=== PATIENT | male | born 1970 | race African-American/Black ===

== ENCOUNTER 2017-04-02 10:37 | Emergency (ER) | payer SELFPAY ==
[~2017-04-02] VITALS: Ht 172.7 cm; Wt 63.6 kg
[2017-04-02] MEDS ORDERED: BACITRACIN 0.9 GM PACKET OINTMENT TP ONE (11:15)
[2017-04-02] MEDS ORDERED: POVIDONE-IODINE 10% 15 ML SOLUTION UD TP ONE (11:15)
[2017-04-02] MEDS ORDERED: LIDOCAINE HCL/PF 1% 2 ML VIAL IM ONE (11:15)
[2017-04-02] MEDS ORDERED: CefTRIAXone SODIUM 1 GM/VIAL IM ONE (11:15)
[2017-04-02 12:32] VITALS: BP 121/84
== END 2017-04-02 12:33 | disposition home or self-care (01) ==
LOC: EMS 10:39
DX: L02.01 Cutaneous abscess of face (principal); L03.211 Cellulitis of face; L08.9 Local infection of the skin and subcutaneous tissue, unspecified; F17.210 Nicotine dependence, cigarettes, uncomplicated; F15.90 Other stimulant use, unspecified, uncomplicated
CPT/HCPCS: 96372; 99283; J0696; J3490

== ENCOUNTER 2019-10-07 15:31 | Emergency (ER) | payer MEDICAID ==
[~2019-10-07] VITALS: Ht 172.7 cm; Wt 63.6 kg
[2019-10-07] MEDS ORDERED: HALO5TAB2 PO (15:43)
[2019-10-07] MEDS ORDERED: DIPH50 PO (15:43)
[2019-10-07 15:44] VITALS: BP 126/83
[2019-10-07] MEDS ORDERED: NAPROXEN 250 MG TABLET PO ONE (16:30)
== END 2019-10-07 16:32 | disposition home or self-care (01) ==
LOC: EMS 15:32
DX: S31.119D Laceration without foreign body of abdominal wall, unspecified quadrant without penetration into peritoneal cavity, subsequent encounter (principal); R03.0 Elevated blood-pressure reading, without diagnosis of hypertension; F15.90 Other stimulant use, unspecified, uncomplicated; F17.210 Nicotine dependence, cigarettes, uncomplicated; Z48.02 Encounter for removal of sutures; X58.XXXD Exposure to other specified factors, subsequent encounter

== ENCOUNTER 2020-09-01 00:54 | Emergency (ER) | payer MEDICAID ==
[~2020-09-01] VITALS: Ht 165.1 cm; Wt 50.0 kg
[~2020-09-01 00:54] MED LIST: DIPH50 PO; HALO5TAB2 PO
[2020-09-01] MEDS ORDERED: LORazepam 2 MG/ML VIAL IVP ONE (01:15)
[2020-09-01] MEDS ORDERED: DiphenhydrAMINE HCL 50 MG/ML VIAL IVP ONE (01:15)
[2020-09-01] MEDS ORDERED: HALOPERIDOL LACTATE 5 MG/ML VIAL ONE (01:28)
[2020-09-01] MEDS ORDERED: DiphenhydrAMINE HCL 50 MG/ML VIAL IM ONE (01:30)
[2020-09-01] MEDS ORDERED: HALOPERIDOL LACTATE 5 MG/ML VIAL IM ONE (01:30)
[2020-09-01] MEDS ORDERED: LORazepam 2 MG/ML VIAL IM ONE (01:30)
[2020-09-01 06:50] LABS: BASOPHILS % (AUTO) 0.2 % (0.0-2.0); EOSINOPHILS % (AUTO) 0 % (1.0-6.0); HEMATOCRIT 38.8 % (41-53); HEMOGLOBIN 12.7 g/dL (13.5-17.5); LYMPHOCYTES # (AUTO) 0.5 K/uL (1.0-4.8); LYMPHOCYTES % (AUTO) 4.2 % (22.0-44.0); MEAN CORPUSCULAR HEMOGLOBIN 28.5 pg (26.0-34.0); MEAN CORPUSCULAR HGB CONC 32.8 G/dL (31.0-37.0); MEAN CORPUSCULAR VOLUME 87 fL (80-100); MONOCYTES # (AUTO) 0.5 K/uL (0.1-1.0); MONOCYTES % (AUTO) 4.7 % (2.0-9.0); NEUTROPHILS # (AUTO) 10.2 K/uL (1.8-7.7); PLATELET COUNT (AUTO) 251 K/uL (150-450); RED BLOOD CELL COUNT(AUTO) 4.46 MIL/uL (4.50-5.90); RED CELL DISTRIBUTION WIDTH 15.4 % (11.5-14.5)
[2020-09-01 06:51] LABS: NEUTROPHILS % (AUTO) 90.9 % (40.0-70.0)
[2020-09-01 06:58] LABS: ANION GAP 8 mmol/L (8-16); CALCIUM, TOTAL 8.3 mg/dL (8.8-10.5); CARBON DIOXIDE 28 mmol/L (22-29); CHLORIDE 110 mmol/L (98-107); GLOMERULAR FILTR. RATE CALC > 60 mL/min (>60); GLUCOSE,RANDOM 122 mg/dL (70-110); POTASSIUM 3.4 mmol/L (3.5-5.1); SODIUM SERUM 146 mmol/L (136-145); UREA NITROGEN, BLOOD 20 mg/dL (7-18)
[2020-09-01 07:03] LABS: ALANINE AMINOTRANSFERASE 46 U/L (12-78); ALBUMIN 3.4 g/dL (3.4-5.0); ALKALINE PHOSPHATASE 84 U/L (46-116); ASPARTATE AMINOTRANSFERASE 54 U/L (15-37); BILIRUBIN,TOTAL 0.7 mg/dL (0.1-1.0); TOTAL PROTEIN, SERUM 7.6 g/dL (6.4-8.2)
[2020-09-01 08:00] VITALS: BP 114/73
[2020-09-01] MEDS ORDERED: AMMONIA 1 EA AMP IH ONE (09:04)
== END 2020-09-01 10:22 | disposition home or self-care (01) ==
LOC: EMS 00:55
DX: T40.601A Poisoning by unspecified narcotics, accidental (unintentional), initial encounter (principal); F17.210 Nicotine dependence, cigarettes, uncomplicated; F15.90 Other stimulant use, unspecified, uncomplicated; Z79.899 Other long term (current) drug therapy; Y92.89 Other specified places as the place of occurrence of the external cause
CPT/HCPCS: 36415; 80053; 85025; 96372; 99285; G0480; J1200; J1630; J2060

== ENCOUNTER 2022-03-15 03:39 | Inpatient (IN) | payer MEDICAID ==
[~2022-03-15] VITALS: Ht 165.1 cm; Wt 57.0 kg
[2022-03-19] MEDS ORDERED: ZOLPIDEM TARTRATE 10 MG TABLET PO PRN (14:00)
[2022-03-19] MEDS: RisperiDONE 3 MG TABLET PO SCH (16:15)
[2022-03-19] MEDS: LITHIUM CARBONATE 300 MG CAPSULE PO SCH (16:15)
[2022-03-19] MEDS: DIVALPROEX SODIUM 500 MG DR TABLET PO SCH (16:15)
[2022-03-20] MEDS: RisperiDONE 3 MG TABLET PO SCH ×3 (09:29→17:00)
[2022-03-20] MEDS: DIVALPROEX SODIUM 500 MG DR TABLET PO SCH ×3 (09:29→17:00)
[2022-03-20] MEDS: LITHIUM CARBONATE 300 MG CAPSULE PO SCH ×3 (09:29→17:00)
[2022-03-20] MEDS: LORazepam 2 MG TABLET PO PRN ×2 (09:30→17:00)
[2022-03-21] MEDS: HALOPERIDOL 5 MG TABLET PO PRN (07:58)
[2022-03-21] MEDS: LITHIUM CARBONATE 300 MG CAPSULE PO SCH ×2 (07:58→17:48)
[2022-03-21] MEDS: LORazepam 2 MG TABLET PO PRN ×2 (07:58→17:48)
[2022-03-21] MEDS: DIVALPROEX SODIUM 500 MG DR TABLET PO SCH ×2 (07:58→17:48)
[2022-03-21] MEDS: RisperiDONE 3 MG TABLET PO SCH ×2 (07:58→17:48)
[2022-03-22] MEDS: LITHIUM CARBONATE 300 MG CAPSULE PO SCH ×2 (07:40→16:36)
[2022-03-22] MEDS: RisperiDONE 3 MG TABLET PO SCH ×2 (07:40→16:36)
[2022-03-22] MEDS: HALOPERIDOL 5 MG TABLET PO PRN (07:40)
[2022-03-22] MEDS: DIVALPROEX SODIUM 500 MG DR TABLET PO SCH ×2 (07:40→16:36)
[2022-03-22] MEDS: LORazepam 2 MG TABLET PO PRN ×2 (07:40→16:36)
[2022-03-23] MEDS: DIVALPROEX SODIUM 500 MG DR TABLET PO SCH ×2 (08:09→16:24)
[2022-03-23] MEDS: LITHIUM CARBONATE 300 MG CAPSULE PO SCH ×2 (08:10→16:24)
[2022-03-23] MEDS: RisperiDONE 3 MG TABLET PO SCH ×2 (08:10→16:24)
[2022-03-23] MEDS: LORazepam 2 MG TABLET PO PRN ×2 (08:10→16:24)
[2022-03-23 16:35] VITALS: BP 110/71
[2022-03-23 16:36] VITALS: BP 110/71
[2022-03-23] MEDS ORDERED: MAGNESIUM HYDROXIDE SUSPENSION 30 ML UDCUP PO PRN (19:00)
[2022-03-23] MEDS ORDERED: BENZOCAINE/MENTHOL LOZENGE PO PRN (19:00)
[2022-03-23] MEDS ORDERED: BACITRACIN 28 GM OINTMENT TP PRN (19:00)
[2022-03-23] MEDS ORDERED: PETROLATUM,WHITE 28 GM JELLY TP PRN (19:00)
[2022-03-23] MEDS ORDERED: LOPERAMIDE HCL 2 MG CAPSULE PO PRN (19:00)
[2022-03-23] MEDS ORDERED: ALBUTEROL SULFATE HFA 90 MCG/PUFF 8 GM INHALER IH PRN (19:00)
[2022-03-23] MEDS ORDERED: OMEPRAZOLE 20 MG CAPSULE PO PRN (19:00)
[2022-03-23] MEDS ORDERED: CloNIDine HCL 0.1 MG TABLET PO PRN (19:00)
[2022-03-23] MEDS ORDERED: ONDANSETRON HCL 4 MG TABLET PO PRN (19:00)
[2022-03-23] MEDS ORDERED: MAG HYDROX/AL HYDROX/SIMETH ES 30 ML SUSPENSION UDCUP PO PRN (19:00)
[2022-03-23] MEDS ORDERED: ACETAMINOPHEN 325 MG TABLET PO PRN (19:00)
[2022-03-23] MEDS ORDERED: DOCUSATE SODIUM 100 MG CAPSULE PO PRN (19:00)
[2022-03-24 08:14] VITALS: BP 130/82
[2022-03-24] MEDS: HALOPERIDOL 5 MG TABLET PO PRN (10:14)
[2022-03-24] MEDS: LITHIUM CARBONATE 300 MG CAPSULE PO SCH ×2 (10:14→16:24)
[2022-03-24] MEDS: DIVALPROEX SODIUM 500 MG DR TABLET PO SCH ×2 (10:14→16:25)
[2022-03-24] MEDS: RisperiDONE 3 MG TABLET PO SCH ×2 (10:14→16:25)
[2022-03-24 15:49] LABS: COVID AG,FIA SOURCE NASAL SWAB
[2022-03-24 16:18] LABS: HEMATOCRIT 36.9 % (41-53); HEMOGLOBIN 12.2 g/dL (13.5-17.5); MEAN CORPUSCULAR VOLUME 86 fL (80-100)
[2022-03-24 16:19] LABS: BASOPHILS % (AUTO) 0.4 % (0.0-2.0); EOSINOPHILS % (AUTO) 0.1 % (1.0-6.0); LYMPHOCYTES # (AUTO) 1.2 K/uL (1.0-4.8); LYMPHOCYTES % (AUTO) 8.2 % (22.0-44.0); MEAN CORPUSCULAR HEMOGLOBIN 28.4 pg (26.0-34.0); MEAN CORPUSCULAR HGB CONC 33.1 G/dL (31.0-37.0); NEUTROPHILS % (AUTO) 84.3 % (40.0-70.0); PLATELET COUNT (AUTO) 350 K/uL (150-450)
[2022-03-24 16:23] LABS: ALKALINE PHOSPHATASE 105 U/L (46-116); ANION GAP 12 mmol/L (8-16); BILIRUBIN,TOTAL 1.1 mg/dL (0.1-1.0); CALCIUM, TOTAL 9.7 mg/dL (8.8-10.5); CARBON DIOXIDE 25 mmol/L (22-29); CHLORIDE 112 mmol/L (98-107); CREATININE 1.08 mg/dL (0.60-1.30); GLOMERULAR FILTR. RATE CALC > 60 mL/min (>60); GLUCOSE,RANDOM 81 mg/dL (70-110); SODIUM SERUM 149 mmol/L (136-145); UREA NITROGEN, BLOOD 29 mg/dL (7-18)
[2022-03-24 16:24] LABS: ALANINE AMINOTRANSFERASE 68 U/L (12-78); ALBUMIN 3.8 g/dL (3.4-5.0); ASPARTATE AMINOTRANSFERASE 180 U/L (15-37); TOTAL PROTEIN, SERUM 8.1 g/dL (6.4-8.2)
[2022-03-24] MEDS: LORazepam 2 MG TABLET PO PRN (17:34)
[2022-03-25] MEDS: LITHIUM CARBONATE 300 MG CAPSULE PO SCH ×2 (07:55→16:06)
[2022-03-25] MEDS: HALOPERIDOL 5 MG TABLET PO PRN (07:55)
[2022-03-25] MEDS: RisperiDONE 3 MG TABLET PO SCH ×2 (07:55→16:06)
[2022-03-25] MEDS: DIVALPROEX SODIUM 500 MG DR TABLET PO SCH ×2 (07:55→16:05)
[2022-03-25] MEDS: IBUPROFEN 600 MG TABLET PO PRN (09:10)
[2022-03-25 16:06] VITALS: BP 135/84
[2022-03-26] MEDS: DIVALPROEX SODIUM 500 MG DR TABLET PO SCH ×2 (07:24→16:07)
[2022-03-26] MEDS: HALOPERIDOL 5 MG TABLET PO PRN (07:24)
[2022-03-26] MEDS: LITHIUM CARBONATE 300 MG CAPSULE PO SCH ×2 (07:24→16:07)
[2022-03-26] MEDS: RisperiDONE 3 MG TABLET PO SCH ×2 (07:24→16:07)
[2022-03-26] MEDS: IBUPROFEN 600 MG TABLET PO PRN (07:32)
[2022-03-27 00:12] VITALS: BP 100/60
[2022-03-27] MEDS: RisperiDONE 3 MG TABLET PO SCH ×2 (10:09→16:37)
[2022-03-27] MEDS: DIVALPROEX SODIUM 500 MG DR TABLET PO SCH ×2 (10:09→16:37)
[2022-03-27] MEDS: LITHIUM CARBONATE 300 MG CAPSULE PO SCH ×2 (10:09→16:37)
[2022-03-27] MEDS: IBUPROFEN 600 MG TABLET PO PRN (12:48)
[2022-03-27] MEDS: LORazepam 2 MG TABLET PO PRN (16:37)
[2022-03-28] MEDS: RisperiDONE 3 MG TABLET PO SCH ×2 (09:00→16:32)
[2022-03-28] MEDS: DIVALPROEX SODIUM 500 MG DR TABLET PO SCH ×2 (09:00→16:32)
[2022-03-28] MEDS: LITHIUM CARBONATE 300 MG CAPSULE PO SCH ×2 (09:00→16:32)
[2022-03-28] MEDS: LORazepam 2 MG TABLET PO PRN (16:33)
[2022-03-28] MEDS: HALOPERIDOL 5 MG TABLET PO PRN (16:33)
[2022-03-29] MEDS: RisperiDONE 3 MG TABLET PO SCH ×2 (08:07→16:21)
[2022-03-29] MEDS: LITHIUM CARBONATE 300 MG CAPSULE PO SCH ×2 (08:07→16:21)
[2022-03-29] MEDS: LORazepam 2 MG TABLET PO PRN ×2 (08:07→17:21)
[2022-03-29] MEDS: IBUPROFEN 600 MG TABLET PO PRN (08:07)
[2022-03-29] MEDS: DIVALPROEX SODIUM 500 MG DR TABLET PO SCH ×2 (08:07→16:21)
[2022-03-29] MEDS: HALOPERIDOL 5 MG TABLET PO PRN (16:21)
[2022-03-29 16:45] VITALS: BP 117/78
[2022-03-30 08:28] VITALS: BP 112/76
[2022-03-30] MEDS: RisperiDONE 3 MG TABLET PO SCH ×2 (09:31→16:12)
[2022-03-30] MEDS: DIVALPROEX SODIUM 500 MG DR TABLET PO SCH ×2 (09:31→16:12)
[2022-03-30] MEDS: LITHIUM CARBONATE 300 MG CAPSULE PO SCH ×2 (09:31→16:12)
[2022-03-31] MEDS: LITHIUM CARBONATE 300 MG CAPSULE PO SCH ×2 (07:47→16:05)
[2022-03-31] MEDS: DIVALPROEX SODIUM 500 MG DR TABLET PO SCH ×2 (07:47→16:05)
[2022-03-31] MEDS: RisperiDONE 3 MG TABLET PO SCH ×2 (07:47→16:05)
[2022-03-31 08:20] VITALS: BP 93/57
[2022-03-31] MEDS: IBUPROFEN 600 MG TABLET PO PRN (10:52)
[2022-03-31 16:21] VITALS: BP 133/81
[2022-04-01 08:30] VITALS: BP 121/81
[2022-04-01] MEDS: RisperiDONE 3 MG TABLET PO SCH (08:33)
[2022-04-01] MEDS: LITHIUM CARBONATE 300 MG CAPSULE PO SCH (08:33)
[2022-04-01] MEDS: DIVALPROEX SODIUM 500 MG DR TABLET PO SCH (08:33)
[2022-04-01] MEDS ORDERED: DIVA-112 PO (13:34)
[2022-04-01] MEDS ORDERED: LITH300C3 PO (13:34)
[2022-04-01] MEDS ORDERED: RISP3TAB63 PO (13:34)
== END 2022-04-01 14:05 | disposition home or self-care (01) | DRG 750 ==
LOC: 3EI 03:39 → UNDOADMIN 04:30 → 3EC 04:30
PROVIDERS: ADMIT Psychiatry & Neurology Psychiatry; ATTEND Psychiatry & Neurology Psychiatry
DX: F20.9 Schizophrenia, unspecified (principal); E87.0 Hyperosmolality and hypernatremia; K75.9 Inflammatory liver disease, unspecified; Z20.822 Contact with and (suspected) exposure to COVID-19; F19.10 Other psychoactive substance abuse, uncomplicated; F41.9 Anxiety disorder, unspecified; K59.00 Constipation, unspecified; K21.9 Gastro-esophageal reflux disease without esophagitis; G47.00 Insomnia, unspecified; I10 Essential (primary) hypertension; Z56.0 Unemployment, unspecified; Z59.00 Homelessness unspecified
CPT/HCPCS: 80053; 85025; 99291; G0480; J1200; J1630; J2060